=== PATIENT | female | born 1975 | race Caucasian/White ===

== ENCOUNTER 2023-01-17 10:56 | Outpatient (REF) | payer OTHER, SELFPAY ==
[2023-01-17 13:37] LABS: Appearance Urine Hazy; Color Urine Yellow; Glucose Urine UA Negative (Negative); Leukocyte Esterase Urine Negative (Negative); Nitrite Urine Negative (Negative); Specific Gravity - Urine 1.025 (1.005-1.025); UMIC TRIGGER UA YES; Urine Blood Trace (Negative); Urine Ketones Negative (Negative); Urine Protein Negative (Neg-Trace)
[2023-01-17 14:02] LABS: C Reactive Protein 0.59 mg/dL (< or = 0.50); Rheumatoid Factor < 13.0 IU/mL (<15.0); Uric Acid 5.7 mg/dL (2.4-5.7)
[2023-01-17 14:08] LABS: Bacteria Urine 3+ (None Seen); RBC Urine 0-2 /HPF (0-2); WBC Urine 0-5 /HPF (0-5)
[2023-01-17 14:12] LABS: Erythrocyte Sedimentation Rate 10 MM/HR (0-20)
[2023-01-17 14:28] LABS: Creatinine Urine 176.23 mg/dL; Protein/Creatinine Ratio, Ur 0.09 (<0.2); Total Protein Urine Random 16 mg/dL (<12)
[2023-01-18 03:59] LABS: HBc Num1 0.09 S/CO (0.00-0.79); HBsAGNum1 0.29 S/CO (0.00-0.99); Hepatitis A Antibody IgM 0.15 Index (0-0.79); Hepatitis B Core Antibody Nonreactive (Nonreactive); Hepatitis B Surface Antigen Negative (Negative); ~HepC Num1 0.08 S/CO (0.00-0.79); ~Hepatitis A Antibody IgM Nonreactive (Nonreactive); ~Hepatitis B Surface Antibody NONREACTIVE (Nonreactive); ~Hepatitis C Antibody Nonreactive (Nonreactive)
[2023-01-19 07:48] LABS: Lyme Abs Screen <0.90 index
[2023-01-19 15:14] LABS: Anti Nuclear Antibody Screen NEGATIVE (NEGATIVE)
[2023-01-20 04:34] LABS: TS Negative Control Passed; TS Panel A 0; TS Panel B 2; TS Positive Control Passed; TSpotTB Negative (Negative)
[2023-01-20 23:08] LABS: Prot Elec - Albumin 4.4 g/dL (3.8-4.8); Prot Elec - Alpha1 0.3 g/dL (0.2-0.3); Prot Elec - Alpha2 0.8 g/dL (0.5-0.9); Prot Elec - Beta 1 0.5 g/dL (0.4-0.6); Prot Elec - Beta 2 0.4 g/dL (0.2-0.5); Prot Elec - Gamma 0.9 g/dL (0.8-1.7); Prot Elec - Total Protein 7.3 g/dL (6.1-8.1)
[2023-01-21 19:43] LABS: Complement C3 157 mg/dL (83-193)
[2023-01-21 20:49] LABS: Anti DNA DS Antibody 1 IU/mL; Antibody to SS-A Antigen <1.0 NEG AI (<1.0 NEG); Antibody to SS-B Antigen <1.0 NEG AI (<1.0 NEG); SM/Ribonucleoprotein Ab <1.0 NEG AI (<1.0 NEG); Smith Protein <1.0 NEG AI (<1.0 NEG)
[2023-01-22 10:58] LABS: IgA 311 mg/dL (47-310); IgG 993 mg/dL (600-1640); IgM 107 mg/dL (50-300)
[2023-01-22 15:23] LABS: Cyclic Citrullinated Peptide <16 UNITS
[2023-01-23 15:24] LABS: DNAds, Crithidia Antibody Negative (Negative)
[2023-01-24 23:04] LABS: Beta-2 Glycoprotein IgA 4.4 U/mL (<20.0); Beta-2 Glycoprotein IgG <2.0 U/mL (<20.0); Beta-2 Glycoprotein IgM <2.0 U/mL (<20.0)
[2023-01-25 13:58] LABS: Cardiolipin IgG Ab <2.0 GPL-U/mL; Cardiolipin IgM Ab <2.0 MPL-U/mL
[2023-01-26 05:38] LABS: PTT (LAC) Screen 27 sec (<=40)
== END 2023-01-17 10:57 | disposition home or self-care (01) ==
LOC: HO.LAB 10:56
PROVIDERS: PCP Internal Medicine; Visit Provider Student in an Organized Health Care Education/Training Program
DX: M32.9 Systemic lupus erythematosus, unspecified (principal); D68.61 Antiphospholipid syndrome; M25.531 Pain in right wrist; Z11.7 Encounter for testing for latent tuberculosis infection; Z11.59 Encounter for screening for other viral diseases; Z72.89 Other problems related to lifestyle; Z79.899 Other long term (current) drug therapy
CPT/HCPCS: 36415; 81001; 82784; 84156; 84165; 84550; 85597; 85613; 85652; 85730; 86038; 86039; 86140; 86146; 86147; 86160; 86200; 86225; 86235; 86255; 86334; 86431; 86481; 86617; 86618; 86704; 86706; 86709; 86803; 87340; 99202

== ENCOUNTER 2023-02-22 12:42 | Outpatient (REF) | payer OTHER, SELFPAY ==
--- NOTE | ~2023-02-22 | MR_ITS ---
EXAMINATION: MR WRIST WITHOUT AND WITH CONTRAST, RIGHT CLINICAL INFORMATION: Right wrist pain and swelling. Evaluate for inflammatory arthritis. COMPARISON: None available. TECHNIQUE: MRI of the wrist was performed before and after the intravenous administration of 10 mL Gadavist on a high-field scanner. FINDINGS: TRIANGULAR FIBROCARTILAGE: Intact. INTRINSIC LIGAMENTS: Diffuse thickening and heterogeneity of the scapholunate ligament, consistent with a chronic sprain/partial tear. Intact lunotriquetral ligament. TENDONS/MEDIAN NERVE: Intact. ARTICULAR CARTILAGE/BONE: There is fragmentation of the lunate with diffuse decreased T1-T2 signal as well as associated degenerative cystic change. No significant postcontrast enhancement. Findings are consistent with chronic avascular necrosis and fragmentation. Articular cartilage thinning with marginal osteophytes throughout the triscaphe joint. No concerning lytic or blastic osseous lesion. No acute fracture or dislocation. JOINT FLUID/SOFT TISSUES: Lsmeo-pt-gspyvnnv radiocarpal and intercarpal joint effusions as well as a small distal radioulnar joint effusion. There is synovitis with postcontrast enhancement. No abnormal soft tissue mass or fluid collection. MR/MR wrist RT wo/w con IMPRESSION: 1. 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 2. Jhblk-mt-dncsfhjf radiocarpal, intercarpal, and distal radioulnar joint effusions with associated synovitis. Findings likely indicate an inflammatory arthropathy. 3. 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 4. Chronic sprain/partial tear of the scapholunate ligament.
== END 2023-02-22 12:43 | disposition home or self-care (01) ==
LOC: HO.MRI 12:42
PROVIDERS: PCP Internal Medicine; Visit Provider Student in an Organized Health Care Education/Training Program
DX: M25.531 Pain in right wrist (principal)
CPT/HCPCS: 73223; A9585

== ENCOUNTER → 2023-03-12 14:37 | Outpatient (BNVA) | payer OTHER, SELFPAY | PROVIDERS: PCP Internal Medicine; Visit Provider Student in an Organized Health Care Education/Training Program | DX: M25.531 Pain in right wrist (principal); M93.1 Kienbock's disease of adults | CPT/HCPCS: 99212 ==

== ENCOUNTER 2023-04-03 08:31 | Outpatient (REF) | payer OTHER, SELFPAY ==
--- NOTE | ~2023-04-03 | XR_ITS ---
EXAMINATION: XR WRIST, RIGHT CLINICAL INFORMATION: Pain. COMPARISON: MRI wrist dated 02/22/2023. TECHNIQUE: PA, lateral, and oblique views of the right wrist. FINDINGS: Bony alignment and mineralization are normal. The proximal and distal carpal rows are intact. Again, there is irregularity and remodeling of the lunate, consistent with old Kienbock's disease. There is no acute fracture or dislocation. No bony erosive change is seen. No focal soft tissue swelling, gas or foreign body is seen. XR/XR wrist RT min 3V IMPRESSION: Again, there are findings consistent with old Kienbock's disease. No acute fracture or dislocation is seen. There is no focal bony erosive change.
== END 2023-04-03 08:32 | disposition home or self-care (01) ==
LOC: HO.HOSX 08:31
PROVIDERS: Visit Provider Orthopaedic Surgery
DX: M93.1 Kienbock's disease of adults (principal)
CPT/HCPCS: 73110; 99202

== ENCOUNTER 2023-05-07 13:25 | Outpatient (AMB) | payer OTHER, SELFPAY ==
--- NOTE | 2023-05-07 13:49 | MHC.OFFVIS ---
Intake Vital Signs 05/07/23 13:50 Height 5 ft 5 in Weight 263 lb BMI 43.8 Intake Visit Reasons: ov- Osteochondrosis of carpal lunate/ RT Hand Intake Note: ?Le 47 yr old female presents today for to further discuss treatment for her Kienbock's disease with early collapse and fragmentation of the Lunate. Patient reports that her wrist brace didn't provide her with any relief. Allergies iodine Adverse Reaction (Unknown, Verified 05/07/23 14:05) Unknown shellfish derived Adverse Reaction (Unknown, Verified 05/07/23 14:05) Unknown HPI ov- Osteochondrosis of carpal lunate/ RT Hand HPI Details Le is a 47 year old right hand dominant woman who presents to discuss her right wrist Kienbock's disease. She says the brace provided at her last appointment gave her no relief. She reports having wrist pain since 05/2021, which began while she was cleaning something at her house She complains of pain and welling to the dorsal aspect of her wrist. She says she used to do a lot of gymnastic handsprings etc. when she was a child and sprained her wrist multiple times She has found no relief from Tylenol, bracing, or topical creams. She was seen by Rheumatology, who ordered an MRI, and prescribed two courses of Prednisone, which did not help her pain. She denies having trouble with numbness and tingling. ? [facility] Medical History Anxiety and depression Bipolar 1 disorder Coronary artery disease Hypertension Lumbar radicular pain Mixed hyperlipidemia Myocardial infarct Surgical History History of coronary artery stent placement History of esophagogastroduodenoscopy (EGD) Hx of colonoscopy Family History Mother Breast cancer Lymphoma Father FH: prostate cancer Myocardial infarction, Onset Age: 30 Bone cancer Social History Alcohol intake: current Alcohol intake frequency: does not drink Patient Tobacco Use Status: Current everyday Tobacco user Cigarette Packs Per Day: 0.5 Current occupational status: previously employed Current occupation: used to work as a security services specialist Review of Systems Const All systems reviewed & are unremarkable except as noted in HPI and below Physical Exam Vital Signs: BMI result Body Mass Index 43.8 Const General: no acute distress and alert Orientation/consciousness: patient oriented x3 Neuro General: patient oriented x3 Extrem Other: Evaluation of Left Upper Extremity: The patient is alert, oriented, and in no acute distress Neuro: Median, Ulnar, Radial nerves motor and sensory intact and sensation is normal to the tips of all digits No thenar or intrinsic wasting Good APB muscle belly firing and good finger cross Vascular: Cap refill brisk ROM: She can make a fist and extend all her digits Full wrist pronosupination Supination: 65 degrees Full pronation Wrist flexion ~45 degrees, limited by pain Wrist extension ~30 degrees, limited by pain Tender to palpation directly over the radial carpal joint Discomfort with light touch Radiographs: 3 views of the right wrist from 04/03/23 were reviewed by me today in clinic. They show osteonecrosis of the lunate with some early collapse of the lunate. Scapholunate angle about 45 degrees MRI left wrist: Findings: ARTICULAR CARTILAGE/BONE: There is fragmentation of the lunate with diffuse decreased T1-T2 signal as well as associated degenerative cystic change. No significant postcontrast enhancement. Findings are consistent with chronic avascular necrosis and fragmentation. Articular cartilage thinning with marginal osteophytes throughout the triscaphe joint. No concerning lytic or blastic osseous lesion. No acute fracture or dislocation. JOINT FLUID/SOFT TISSUES: Nspnq-ck-jpnjgqix radiocarpal and intercarpal joint effusions as well as a small distal radioulnar joint effusion. There is synovitis with postcontrast enhancement. No abnormal soft tissue mass or fluid collection. IMPRESSION: 1. 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 ? 2. Uqons-ft-vmjluyig radiocarpal, intercarpal, and distal radioulnar joint effusions with associated synovitis. Findings likely indicate an inflammatory arthropathy. ? 3. 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 ? 4. Chronic sprain/partial tear of the scapholunate ligament. 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 Right Kienbock's disease with early collapse of the Lunate, no carpal collapse Stage 3A - with lunate collapse, but no carpal collapse 2. Right wrist hypersensitivity To light touch, even to blowing wind I educated her about this condition I had a long discussion about operative treatment options, including a joint levelling osteotomy of the distal radius vs a proximal row carpectomy. Given that she is a stage IIIA, I think it is reasonable to proceed with a joint leveling distal radial osteotomy The patient would like to proceed with surgery though she dos not want surgery in the next few months. I ordered OT hand therapy to work on densensitization prior to surgery She can wear her wrist brace with daily activity when she is symptomatic She will follow up in 2 months to discuss treatment options. This should be a 30 minute appointment. Scribed for Jaymie Cedeño MD by Palomo Cooley, rn medical surgical, on 05/07/23 at 2:50 PM, EST. 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
[2023-05-07 13:50] VITALS: BMI 43.8
== END 2023-05-07 15:05 | disposition home or self-care (01) ==
PROVIDERS: PCP Internal Medicine; Visit Provider Orthopaedic Surgery
DX: M93.1 Kienbock's disease of adults (principal)
CPT/HCPCS: 99214

== ENCOUNTER → 2023-05-07 13:25 | Outpatient (BNVA) | payer OTHER, SELFPAY | PROVIDERS: PCP Internal Medicine; Visit Provider Orthopaedic Surgery | DX: M93.1 Kienbock's disease of adults (principal); T78.40XA Allergy, unspecified, initial encounter; I25.10 Atherosclerotic heart disease of native coronary artery without angina pectoris; I10 Essential (primary) hypertension; Z95.5 Presence of coronary angioplasty implant and graft; Z72.0 Tobacco use | CPT/HCPCS: 99212 ==

== ENCOUNTER 2023-07-02 11:20 | Outpatient (REF) | payer OTHER, SELFPAY | END 2023-07-02 11:21 | disposition home or self-care (01) | LOC: HO.HOSX 11:20 | PROVIDERS: Visit Provider Orthopaedic Surgery | DX: Z13.89 Encounter for screening for other disorder (principal) ==

== ENCOUNTER 2023-10-22 09:28 | Outpatient (REF) | payer OTHER, SELFPAY | END 2023-10-22 09:29 | disposition home or self-care (01) | LOC: HO.HOSX 09:28 | PROVIDERS: Visit Provider Orthopaedic Surgery | DX: M93.1 Kienbock's disease of adults (principal); T78.40XA Allergy, unspecified, initial encounter | CPT/HCPCS: 99212 ==

== ENCOUNTER 2023-10-22 13:39 | Outpatient (AMB) | payer OTHER, SELFPAY ==
--- NOTE | 2023-10-22 15:03 | A.OFFVIS_ITS ---
Intake Intake Visit Reasons: ov- Osteochondrosis of carpal lunate/ RT Hand Allergies iodine Adverse Reaction (Unknown, Verified 05/07/23 14:05) Unknown shellfish derived Adverse Reaction (Unknown, Verified 05/07/23 14:05) Unknown HPI ov- Osteochondrosis of carpal lunate/ RT Hand HPI Details Le is a 47 year old right hand dominant woman who presents to vipul parham her right wrist Kienbock's disease. She reports having wrist pain since 05/2021, which began while she was cleaning something at her house. She says her pain and hypersensivity has worsened since her last appointment, and now even a breeze on her skin causes her pain. She complains of pain and welling to the dorsal aspect of her wrist. She says she does not baby her wrist and does try to use it for daily activities. She declined to do any OT to address her hypersensitivity and pain, as her mother was re-diagnosed with cancer. She says her mother is doing better now and she is willing to try again. She has agoraphobia and is concerned about her ability to attend OT in clinic. She finds it very difficult to be out of the house for appointments She was somewhat tearful during her appointment today as she had to go through the process of obtaining radiographs at the hospital prior to her appointment She has found no relief from Tylenol, bracing, or topical creams. She was seen by Rheumatology, who ordered an MRI, and prescribed two courses of Prednisone, which did not help her pain. She denies having trouble with numbness and tingling. ? [facility] Medical History Anxiety and depression Bipolar 1 disorder Coronary artery disease Hypertension Lumbar radicular pain Mixed hyperlipidemia Myocardial infarct Surgical History History of coronary artery stent placement History of esophagogastroduodenoscopy (EGD) Hx of colonoscopy Family History Mother Breast cancer Lymphoma Father FH: prostate cancer Myocardial infarction, Onset Age: 30 Bone cancer Social History Alcohol intake: current Alcohol intake frequency: does not drink Patient Tobacco Use Status: Current everyday Tobacco user Cigarette Packs Per Day: 0.5 Current occupational status: previously employed Current occupation: used to work as a security officer supervisor Physical Exam Const General: no acute distress and alert Orientation/consciousness: patient oriented x3 Neuro General: patient oriented x3 Extrem Other: Evaluation of Left Upper Extremity: The patient is alert, oriented, and in no acute distress She was somewhat tearful during her appointment today as she had to go through the process of obtaining radiographs at the hospital prior to her appointment, and has agoraphobia Neuro: Median, Ulnar, Radial nerves motor and sensory intact and sensation is normal to the tips of all digits No thenar or intrinsic wasting Good APB muscle belly firing and good finger cross Vascular: Cap refill brisk ROM: She can make a fist and extend all her digits with encouragement. She did not have increased wrist pain when making a tight fist. Full wrist pronosupination Wrist flexion ~30 degrees, limited by pain Wrist extension ~20 degrees, limited by pain Tender to palpation directly over the radial carpal joint Discomfort with light touch across the dorsal aspect of her hand or 3rd MCP joint. She feels this pain radiates up her middle finger and her thumb No appreciable swelling or effusion about the wrist Radiographs: 3 views of the right wrist were taken and viewed by me today in clinic. They show osteonecrosis of the lunate with some fragmentation of the lunate. Scapholunate angle ~45 degrees. Her carpal height ratio is 0.5. MRI left wrist: Findings: ARTICULAR CARTILAGE/BONE: There is fragmentation of the lunate with diffuse decreased T1-T2 signal as well as associated degenerative cystic change. No significant postcontrast enhancement. Findings are consistent with chronic avascular necrosis and fragmentation. Articular cartilage thinning with marginal osteophytes throughout the triscaphe joint. No concerning lytic or blastic osseous lesion. No acute fracture or dislocation. JOINT FLUID/SOFT TISSUES: Ruadq-bd-yskfhasu radiocarpal and intercarpal joint effusions as well as a small distal radioulnar joint effusion. There is synovitis with postcontrast enhancement. No abnormal soft tissue mass or fluid collection. IMPRESSION: 1. 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 ? 2. Zquzk-ui-eqvipuqt radiocarpal, intercarpal, and distal radioulnar joint effusions with associated synovitis. Findings likely indicate an inflammatory arthropathy. ? 3. 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 ? 4. Chronic sprain/partial tear of the scapholunate ligament. 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 Right Kienbock's disease with early collapse of the Lunate, no carpal collapse Stage 3A - with lunate collapse, but no carpal collapse 2. Right wrist hypersensitivity To light touch, even to blowing wind I educated her about this condition She was unable to attend OT due to family health complications I had a long discussion about operative treatment options, including a joint levelling osteotomy of the distal radius vs a proximal row carpectomy. Given that she is a stage IIIA, I think it is reasonable to proceed with a joint leveling distal radial osteotomy I had a long discussion with her about the importance of OT hand therapy to work on her hypersensitivity before we can consider surgery I ordered a new course of OT hand therapy to work on normalizing her sensation. Of note she has Agoraphobia and it may be difficult to attend OT sessions out of her house. She said that she will try to attend a few, and learn some exercises that she will then do at home to help improve her hypersensitivity. She will follow up in 2 months Scribed for Jaymie Cedeño MD by Palomo Cooley, medical insurance collector, on 10/22/23 at 3:10 PM, EST. 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
== END 2023-10-22 15:33 | disposition home or self-care (01) ==
PROVIDERS: PCP Internal Medicine; Visit Provider Orthopaedic Surgery
DX: M93.1 Kienbock's disease of adults (principal); T78.40XA Allergy, unspecified, initial encounter
CPT/HCPCS: 99213

== ENCOUNTER 2023-10-22 13:57 | Outpatient (REF) | payer OTHER, SELFPAY ==
--- NOTE | ~2023-10-22 | XR_ITS ---
EXAMINATION: XR WRIST, RIGHT CLINICAL INFORMATION: Pain in right wrist COMPARISON: Prior x-ray March 2023 and MRI February 2023. TECHNIQUE: PA, lateral, and oblique views of the right wrist. FINDINGS: There is persistent sclerosis and irregular lucency with proximal articular collapse of the lunate resulting in concavity of the proximal articular surface. This is unchanged. The remaining bones joints and soft tissues are unremarkable. XR/XR wrist RT min 3V IMPRESSION: Stable avascular necrosis of the lunate/Kienbock' s disease.
== END 2023-10-22 13:58 | disposition home or self-care (01) ==
LOC: HO.XRAY 13:57
PROVIDERS: PCP Internal Medicine; Visit Provider Orthopaedic Surgery
DX: M25.531 Pain in right wrist (principal)
CPT/HCPCS: 73110

== ENCOUNTER 2024-01-14 15:55 | Outpatient (REF) | payer OTHER, SELFPAY | END 2024-01-14 15:56 | disposition home or self-care (01) | LOC: HO.HOSX 15:55 | PROVIDERS: Visit Provider Orthopaedic Surgery | DX: Z13.89 Encounter for screening for other disorder (principal) ==

== ENCOUNTER 2024-01-15 10:07 | Outpatient (REF) | payer OTHER, SELFPAY | END 2024-01-15 10:08 | disposition home or self-care (01) | LOC: HO.HOSX 10:07 | PROVIDERS: Visit Provider Orthopaedic Surgery | DX: Z13.89 Encounter for screening for other disorder (principal) ==